=== PATIENT | female | born 1950 | race African-American/Black ===

== ENCOUNTER 2017-11-11 08:26 | Day surgery (SDC) | payer OTHER ==
[2017-11-10 12:55] VITALS: BMI 26.6
[2017-11-11] MEDS ORDERED: MIDAZOLAM HCL 2 MG/2 ML SINGLE DOSE VIAL ONE (10:03)
[2017-11-11] MEDS ORDERED: PROPOFOL 20 ML ONE ×2 (10:03)
[2017-11-11] MEDS ORDERED: ceFAZolin SODIUM 1 GM VIAL IVPB ONE (10:22)
[2017-11-11] MEDS ORDERED: LIDOCAINE HCL 1%, 10 MG/ML (20ML VIAL) NR ONE (10:29)
[2017-11-11] MEDS ORDERED: ONDANSETRON 4 MG/2 ML VIAL IVPUSH PRN (10:49)
--- NOTE | 2017-11-11 10:56 | HP ---
Admitting History and Physical - Admission Chief Complaint: bl necrotic venous stasis ulcers Limitations to Obtaining History: No Limitations - Past Medical History Cardiovascular: Yes: HTN, Other (peripheral Vascular insufficiency) - Past Surgical History Past Surgical History: Yes: Vein Stripping/Ligation - Smoking History Smoking history: Current every day smoker Have you smoked in the past 12 months: Yes Aproximately how many cigarettes per day: 5 - Alcohol/Substance Use Hx Alcohol Use: No History of Substance Use: reports: None - Social History ADL: Independent Home Medications - Allergies Allergies/Adverse Reactions: Allergies Allergy/AdvReac Type Severity Reaction Status Date / Time No Known Allergies Allergy Verified 11/11/17 09:18 - Home Medications Home Medications: Ambulatory Orders Multivitamin [Multivitamins] 1 each PO DAILY 08/01/13 Calcium Carbonate/Vitamin D3 [Calcium 500 + Vit D 400 Tablet] 1 each PO DAILY Potassium Bicarbonate/Cit AC [Potassium 25 Meq Tablet Eff] 20 meq PO DAILY 04/17 Amlodipine Besylate [Norvasc -] 2.5 mg PO DAILY 10/13/14 Aspirin [ASA -] 81 mg PO DAILY 10/13/14 Zolpidem Tartrate [Ambien] 10 mg PO HS 10/11/16 Aclidinium [place] [Tudorza -] 1 puff IH BID #10 inhaler 10/14/16 Albuterol 2.5/Ipratropium 0.5 [Duoneb -] 1 amp NEB Q4H PRN #10 amp 10/14/16 Albuterol Sulfate Inhaler - [Ventolin HFA Inhaler -] 2 puff IH Q4H PRN #10 inhaler 10/14/16 Family Disease History - Family Disease History Family Disease History: Diabetes: Sister ([place] at age 50s), Heart Disease: Mother (HTN), Sister Review of Systems - Review of Systems Constitutional: reports: No Symptoms Eyes: reports: No Symptoms HENT: reports: No Symptoms Neck: reports: No Symptoms Cardiovascular: reports: No Symptoms Respiratory: reports: No Symptoms Gastrointestinal: reports: No Symptoms Genitourinary: reports: No Symptoms Musculoskeletal: reports: No Symptoms Integumentary: reports: No Symptoms Neurological: reports: No Symptoms Endocrine: reports: No Symptoms Hematology/Lymphatic: reports: No Symptoms Psychiatric: reports: No Symptoms Physical Examination Vital Signs: Vital Signs Temperature 97.6 F 11/11/17 09:12 Pulse Rate 100 H 11/11/17 09:12 Respiratory Rate 20 11/11/17 09:12 Blood Pressure 132/83 11/11/17 09:12 O2 Sat by Pulse Oximetry (%) 94 L 11/11/17 09:11 Constitutional: Yes: Well Nourished Eyes: Yes: WNL HENT: Yes: WNL Neck: Yes: WNL Cardiovascular: Yes: WNL Respiratory: Yes: WNL Gastrointestinal: Yes: WNL ...Rectal Exam: Yes: WNL Musculoskeletal: Yes: WNL Extremities: Yes: Other (bl venous stasis ulcers) Edema: LUE: 2+, RUE: 2+ Assessment/Plan bl venous stasis ulcers 1. For debridement today
--- NOTE | 2017-11-11 10:58 | OP ---
Operative Note - Note: Operative Date: 11/11/17 Pre-Operative Diagnosis: bl venous stasis ulcers , necrotic Operation: excisional debridement bl venous stasis ulcers -- skin, subcutaneous tissue Findings: necrotic tissue sent to path Post-Operative Diagnosis: Same as Pre-op Surgeon: Aj Dexter Anesthesia: Fractional Estimated Blood Loss (mls): 30 Operative Report Dictated: Yes
[2017-11-11] MEDS ORDERED: LACTATED RINGERS SOLUTION 1,000 ML IV SCH (11:00)
[2017-11-11 12:18] VITALS: TEMP 98
[2017-11-11 13:00] VITALS: BP 136/81; PULSE 79
--- NOTE | 2017-11-12 10:56 | OP ---
DATE OF OPERATION: 11/11/2017 PREOPERATIVE DIAGNOSIS: Necrotic bilateral lower extremity venous stasis ulcers. POSTOPERATIVE DIAGNOSIS: Necrotic bilateral lower extremity venous stasis ulcers. PROCEDURE PERFORMED: Excisional debridement of bilateral lower extremity venous stasis ulcers, skin and subcutaneous tissue. SURGEON: Aj Garcia DO ANESTHESIA: Fractional. BLOOD LOSS: 30 mL. INDICATIONS: The patient is a 67-year-old female who has had long-standing venous stasis ulcers in bilateral lower extremities. Recently they have become necrotic and it has been very difficult to debride them in the [facility] Care [facility], and we decided that she would need to go to the operating room. The patient came in to Ambulatory Surgery. DESCRIPTION OF PROCEDURE: The patient was consented for the procedure, understanding all risks, benefits and alternatives, and was then taken to the operating room. Once in the operating room, the patient was laid on the operating table in the supine manner. Bilateral lower extremities, legs, ankles and feet were prepped and draped in a sterile surgical manner. We then went ahead and took a curette, and we were able to debride the right medial malleolus, the left medial malleolus and the left lateral malleolus. Necrotic tissue was removed and sent off to Pathology. We were able to get down to a clean surface base for all 3 wounds. Bovie electrocautery was used to control all hemostasis. We then went ahead and placed Xeroform, 4 x 4's, Kerlix and Gabe bandages to both legs. The patient tolerated the procedure with no complication. Total blood loss was 30 mL. The patient was transferred to PACU in stable condition. AJ GARCIA DO CLINICAL EVALUATOR/[id number]
--- NOTE | 2017-11-12 16:51 | PATH ---
Surgical Pathology Report Patient Name: KIRAN KHAN [facility]. Rec. #: [id number] /Age/Gender: 1950 (Age: 67) / F Account: [id number] Location: [facility] SURGICAL Taken: 11/11/2017 Received: 11/11/2017 Reported: 11/12/2017 Physicians: Aj Dexter Specimen(s) Received RIGHT AND LEFT VENOUS STATIS ULCERS Clinical History Bilateral venous stasis ulcers Final Diagnosis SKIN, [place], RIGHT AND LEFT, ULCER DEBRIDEMENT: FRAGMENTS OF SKIN AND SUBCUTANEOUS TISSUE WITH MARKED ACUTE AND CHRONIC INFLAMMATION, NECROSIS, AND ULCERATION. Electronically Signed Adeola Burns M.D. Gross Description Received in formalin labeled "right and left venous stasis ulcers," is a 2.5 x 2.0 x 0.3 cm aggregate of harris-brown soft tissue fragments. Director Emergency Department portions are submitted in one cassette. 11/11/201711/11/2017
== END 2017-11-11 12:15 | disposition home or self-care (01) ==
LOC: JASU-SURG 08:26
PROVIDERS: ATTEND Surgery Vascular Surgery
PROC: 0JBN0ZZ Excision of Right Lower Leg Subcutaneous Tissue and Fascia, Open Approach (ICD-10-PCS; principal; 2017-11-11 09:00)
DX: L97.329 Non-pressure chronic ulcer of left ankle with unspecified severity (principal); L97.319 Non-pressure chronic ulcer of right ankle with unspecified severity; I87.8 Other specified disorders of veins
CPT/HCPCS: 88304-TC; 94760

== ENCOUNTER 2018-09-18 11:18 | Observation (INO) | payer OTHER ==
--- NOTE | 2018-09-18 12:16 | PDOC ---
History of Present Illness - General Chief Complaint: Wound Stated Complaint: SENT BY PCP/ADMISSION Time Seen by Provider: 09/18/18 11:54 History Source: Patient Exam Limitations: No Limitations - History of Present Illness Initial Comments: 09/18/18 15:53 66F with PMH of PVD HTN chronic venous stasis ulcers and recurrent cellulitis presents with pain and new ulcers on the R medial and lateral aspects of the ankle with new serosangounes drainage. The patient denies any fevers, difficulty ambulating, headaches, fevers, nausea, vomiting. Past History - Past Medical History Allergies/Adverse Reactions: Allergies Allergy/AdvReac Type Severity Reaction Status Date / Time No Known Allergies Allergy Verified 09/18/18 11:26 Home Medications: Ambulatory Orders Multivitamin [Multivitamins] 1 each PO DAILY 08/01/13 Calcium Carbonate/Vitamin D3 [Calcium 500 + Vit D 400 Tablet] 1 each PO DAILY Potassium Bicarbonate/Cit AC [Potassium 25 Meq Tablet Eff] 20 meq PO DAILY 04/17 Amlodipine Besylate [Norvasc -] 2.5 mg PO DAILY 10/13/14 Aspirin [ASA -] 81 mg PO DAILY 10/13/14 Aclidinium [place] [Tudorza -] 1 puff IH BID #10 inhaler 10/14/16 Albuterol 2.5/Ipratropium 0.5 [Duoneb -] 1 amp NEB Q4H PRN #10 amp 10/14/16 Albuterol Sulfate Inhaler - [Ventolin HFA Inhaler -] 2 puff IH Q4H PRN #10 inhaler 10/14/16 Anemia: No Asthma: No Cancer: No Cardiac Disorders: No CVA: No COPD: Yes CHF: No Dementia: No Diabetes: No GI Disorders: No Disorders: No HTN: Yes Hypercholesterolemia: No Liver Disease: No Seizures: No Thyroid Disease: No Other medical history: PVD - Surgical History Abdominal Surgery: No Appendectomy: No Cardiac Surgery: No Cholecystectomy: No Lung Surgery: No Neurologic Surgery: No Orthopedic Surgery: No - Suicide/Smoking/Psychosocial Hx Smoking History: Current every day smoker Have you smoked in the past 12 months: Yes Number of Cigarettes Smoked Daily: 5 Information on smoking cessation initiated: Yes 'Breaking Loose' booklet given: 09/18/18 Hx Alcohol Use: No Drug/Substance Use Hx: No Substance Use Type: None Hx Substance Use Treatment: No *Physical Exam - Vital Signs Last Vital Signs Temp Pulse Resp BP Pulse Ox 98.2 F 95 H 18 137/77 100 09/18/18 11:27 09/18/18 11:27 09/18/18 11:27 09/18/18 11:27 09/18/18 11:27 - Physical Exam Comments: 09/18/18 12:14 2 - .5 cm medial stage 1 ulcers 1 - .25cm lateral stage 1 ulcer. pain to the touch and of medial dorsal aspect of L foot (new) yellow discharge no fevers wound clinic ever thursday due to PVD 09/18/18 15:15 ED Treatment Course - LABORATORY CBC & Chemistry Diagram: 09/18/18 13:53 09/18/18 13:53 Medical Decision Making - Medical Decision Making 09/18/18 15:14 DDX including but not limited to: osteomylitis vs ulcers vs cellulitis W/U: - TX: - Scores: ED Course: Patient in no acute distress, ambulating around the ED without difficulty. 09/18/18 15:43 Dotty contacted: advised to give abx as pt is immunocompromised. Recommends admission for further workup to r/o osteomyoletis 09/18/18 16:52 Patient admitted to medicine. *DC/Admit/Observation/Transfer Diagnosis at time of Disposition: Ulcer of left foot - Discharge Dispostion Disposition: HOME Condition at time of disposition: Stable Decision to Admit order: Yes - Referrals Referrals: Hemalatha Storm MD [Primary Care Provider] - - Patient Instructions - Post Discharge Activity
--- NOTE | 2018-09-18 12:49 | PDOC ---
Attending Attestation - HPI HPI: 09/18/18 15:44 "The patient is a 68-year-old female with past medical history significant for HTN, PVD, and chronic R/L ankle ulcer was referred to the emergency department by Dr. Storm for new onset of ulcers to the medial and lateral aspect of the ankle and possible osteomyelitis. The patient reports she gets the wound dressing changed every Thursday. The patient states during the dressing change yesterday (09/17/2018), the doctor noticed new wounds to the ankles with yellow serosanguineous drainage. Denies seeing the wound last Thursday, pain to the site , fever, chills, chest pain, shortness of breath, abdominal pain, numbness, tingling, loss of sensation, weakness or falls. Per pt, she was told to come to the hospital for psosible admission for iv abx and mri for osteomyelitis. Allergies: NKA Social history: Current everyday smoker. Denies prior or present use of alcohol or recreational drug use. Surgical history: None reported ID: Hemalatha Storm MD Vascular Surgeon: Dr. Dexter. " - Medical Decision Making 09/18/18 15:45 Documentation prepared by Leilani Zamora, acting as medical surgical tech for Jacobo Conde MD. <Leilani Zamora - Last Filed: 09/18/18 15:44> - Resident Resident Name: Radha Colon - ED Attending Attestation I have performed the following: I have examined & evaluated the patient, The case was reviewed & discussed with the resident, I agree w/resident's findings & plan, Exceptions are as noted - Physicial Exam PE: 09/18/18 12:59 General: No acute distress Skin: 2x .5cm medial ulcers, 1 x .25cm lateral ulcers on ankle - Medical Decision Making 09/18/18 12:20 68y F hx of pvd, chronic r and l ankle ulcers, fus with wound care, noticed some yellowish serosangounous discharge and new ulcers at wound care, referred for MRI by ID for evaluation of possible osteomyelitis. p t denies any fever, cp , abd pain, n/v, diaphorsis, generalized weakness. endorses mild pain in her ankle will obtain crp/esr, xray, basic labs will discuss with ID (Dr. Storm) 09/18/18 18:20 Pt had a IV guided line that infiltrated. I attempted to place US guided lines without success, several blown llines. Pt declines further attemps for now - she is pending an MRI for osteo - if no osteo, pt may not need a line. Will attempt place IO or central line for access if she needs IV abx <Jacobo Conde - Last Filed: 09/19/18 09:46>
[2018-09-18] MEDS ORDERED: SODIUM CHLORIDE 1,000 ML IV SCH (13:00)
[2018-09-18 14:10] LABS: BASO % 0.9 % (0-2.0); EOS % 1.7 % (0-4.5); HEMATOCRIT 39.4 % (32.4-45.2); HEMOGLOBIN 12.8 GM/dL (10.7-15.3); LYMPH % 35.6 % (8-40); MCH 28.5 pg (25.7-33.7); MCHC 32.6 g/dl (32.0-36.0); MEAN CELL VOLUME 87.4 fl (80-96); MEAN PLT VOLUME 7.6 fl (7.5-11.1); MONO % 6.6 % (3.8-10.2); NEUT % 55.2 % (42.8-82.8); PLATELET COUNT 153 K/MM3 (134-434); RBC 4.51 M/mm3 (3.60-5.2); RDW 14.5 % (11.6-15.6); WHITE BLOOD COUNT 5.9 K/mm3 (4.0-10.0)
[2018-09-18 14:35] LABS: ALBUMIN 3.5 g/dl (3.4-5.0); ALK PHOS 111 U/L (45-117); ANION GAP 4 MMOL/L (8-16); BILIRUBIN,TOTAL 0.4 mg/dL (0.2-1); BLOOD UREA NITROGEN 13 mg/dL (7-18); CALCIUM 8.5 mg/dL (8.5-10.1); CHLORIDE 102 mmol/L (98-107); CO2 34 mmol/L (21-32); CREATININE 0.6 mg/dL (0.55-1.3); GLUCOSE,RANDOM 131 mg/dL (74-106); POTASSIUM 4.4 mmol/L (3.5-5.1); SGOT/AST 26 U/L (15-37); SGPT/ALT 20 U/L (13-61); SODIUM 139 mmol/L (136-145); TOT PROT 8.7 g/dl (6.4-8.2)
[2018-09-18 15:33] LABS: ERYTHROCYTE SEDIMENTATION RATE 32 mm/hr (0-30)
[2018-09-18] MEDS ORDERED: VANCOMYCIN 1,000 MG in DEXTROSE 5%-WATER - 250 ML IVPB ONE (15:42)
[2018-09-18] MEDS ORDERED: PIPERACILLIN/TAZOB 4.5 GM 4.5 GM/100 ML BAG IVPB ONE (16:45)
[2018-09-18] MEDS ORDERED: VANCOMYCIN 1 GRAM (PRE-DOCKED) 1,000 MG/250 ML BAG IVPB ONE (16:45)
[2018-09-18] MEDS: PIPERACILLIN/TAZOB 4.5 GM 4.5 GM in DEXTROSE 5%-WATER 100 ML IVPB ONE ×2 (16:47→22:37)
--- NOTE | 2018-09-18 16:48 | PN ---
Teaching Attending Note Name of Resident: Honorio Gomez ATTENDING PHYSICIAN STATEMENT I saw and evaluated the patient. I reviewed the resident's note and discussed the case with the resident. I agree with the resident's findings and plan as documented. SUBJECTIVE: CC: patient was sent from the ID clinic for further evaluation of new foot ulcers with concern for OM. She states that she has been in her US[facility] till last week when she noticed worsening pain in her L ankle. She denies any other complaints,no F/C. she avina had chronic venous insufficiency ulcers B/L Ankles, lat time I&D inaptient with concern for OM 2 years ago. States that she has the B/L unaboots changed weekly by her vascular surgeon doctor Isacc, and today during the exam they noticed new ulcers around the healing medical maleus ulcer of the L ankle with erythema around it and some pus discharge. She was sent to the hospital for MRI. OBJECTIVE: Last Vital Signs Temp Pulse Resp BP Pulse Ox 98.2 F 95 H 18 137/77 100 09/18/18 11:27 09/18/18 11:27 09/18/18 11:27 09/18/18 11:27 09/18/18 11:27 She refused to let us open the unaboot. In no distress MMM B/L radial pulses equal, could not detect poplietal arteries again. CVS:S1S2, + Murmur Lung; good air movement, has minimal rals B basilar ABd: BS+ NT/ND MELY: has the unaboots on. chronic skin changes around the toes CBCD WBC 5.9 K/mm3 (4.0-10.0) 09/18/18 13:53 RBC 4.51 M/mm3 (3.60-5.2) 09/18/18 13:53 Hgb 12.8 GM/dL (10.7-15.3) 09/18/18 13:53 Hct 39.4 % (32.4-45.2) 09/18/18 13:53 MCV 87.4 fl (80-96) 09/18/18 13:53 MCHC 32.6 g/dl (32.0-36.0) 09/18/18 13:53 RDW 14.5 % (11.6-15.6) 09/18/18 13:53 Plt Count 153 K/MM3 (134-434) 09/18/18 13:53 MPV 7.6 fl (7.5-11.1) 09/18/18 13:53 CMP Sodium 139 mmol/L (136-145) 09/18/18 13:53 Potassium 4.4 mmol/L (3.5-5.1) 09/18/18 13:53 Chloride 102 mmol/L (98-107) 09/18/18 13:53 Carbon Dioxide 34 mmol/L (21-32) H 09/18/18 13:53 Anion Gap 4 MMOL/L (8-16) L 09/18/18 13:53 BUN 13 mg/dL (7-18) 09/18/18 13:53 Creatinine 0.6 mg/dL (0.55-1.3) 09/18/18 13:53 Creat Clearance w eGFR > 60 (>60) 09/18/18 13:53 Random Glucose 131 mg/dL (74-106) H 09/18/18 13:53 Calcium 8.5 mg/dL (8.5-10.1) 09/18/18 13:53 Total Bilirubin 0.4 mg/dL (0.2-1) 09/18/18 13:53 AST 26 U/L (15-37) 09/18/18 13:53 ALT 20 U/L (13-61) 09/18/18 13:53 Alkaline Phosphatase 111 U/L (45-117) 09/18/18 13:53 Total Protein 8.7 g/dl (6.4-8.2) H 09/18/18 13:53 Albumin 3.5 g/dl (3.4-5.0) 09/18/18 13:53 Laboratory Tests 09/18/18 09/18/18 13:53 13:53 ESR 32 H C-Reactive Protein 0.8 H Foot Xray with no clear OSTEO Home Medications Medication Instructions Recorded Multivitamin [Multivitamins] 1 each PO DAILY 08/01/13 Calcium Carbonate/Vitamin D3 1 each PO DAILY 04/17/14 [Calcium 500 + Vit D 400 Tablet] Potassium Bicarbonate/Cit AC 20 meq PO DAILY 04/17/14 [Potassium 25 Meq Tablet Eff] Amlodipine Besylate [Norvasc -] 2.5 mg PO DAILY 10/13/14 Aspirin [ASA -] 81 mg PO DAILY 10/13/14 Aclidinium [place] [Tudorza -] 1 puff IH BID #10 inhaler 10/14/16 Albuterol 2.5/Ipratropium 0.5 1 amp NEB Q4H PRN #10 amp 10/14/16 [Duoneb -] Albuterol Sulfate Inhaler - 2 puff IH Q4H PRN #10 inhaler 10/14/16 [Ventolin HFA Inhaler -] ASSESSMENT AND PLAN: She is 68 Y/O F active smoker, with chronic venous insufficiency following up with Dr. Dexter. sent from clinic for new ulcers and concern for OM. ESR and CRP are not significantly elevated, No leukocytosis, but she states that the pain has worsened, will get MRI for OM. will start her on vanc/zosyn per ID recs. further planing pending MRI REPORTS Poor pulses in the MELY will get vascular studies for arterial supply. She is on aspirin and CCB Active smoker: does not want to talk about smoking cessation at this time, denies need for nicotine patch rest of the management per HS note
[2018-09-18] MEDS ORDERED: VANCOMYCIN 1,000 MG in DEXTROSE 5%-WATER - 250 ML IVPB SCH ×2 (17:00→18:00)
--- NOTE | 2018-09-18 17:32 | HP ---
CHIEF COMPLAINT: L leg ulcers HISTORY OF PRESENT ILLNESS: 68 year old female with a history peripheral arterial/venous disease, hypertension and recurrent cellulitis requiring usp antibiotics in the past sent by Dr. Storm for evaluation of left lower extremity ankle wound and IV antibiotics. Patient sees Dr. Dexter as an outpatient once a week. Reports that for about 1 week, she has had a quarter sized ulcer on the medial and lateral side of her ankle become worse - reports that smaller ulcers are appearing around the edge of the chronic ulcers and have begun to ooze purulent fluid. She reports mild pain around the area of the ulcer. Denies fevers, chills , nausea, vomiting, diarrhea, chest pain or shortness of breath. No sick contacts. No recent travel. ER course was notable for: (1) ESR/CRP mildly elevated (2) X ray of the foot cannot r/o osteomyelitis and recommends MRI (3) PAST MEDICAL HISTORY: PAD HTN PAST SURGICAL HISTORY: laser vein surgery Social History: Smokin.5 ppd since she was a teenager, cut down to 0.5ppd Alcohol: denies Drugs: denies Allergies No Known Allergies Allergy (Verified 09/18/18 11:26) HOME MEDICATIONS: Home Medications Medication Instructions Recorded Multivitamin [Multivitamins] 1 each PO DAILY 08/01/13 Calcium Carbonate/Vitamin D3 1 each PO DAILY 04/17/14 [Calcium 500 + Vit D 400 Tablet] Potassium Bicarbonate/Cit AC 20 meq PO DAILY 04/17/14 [Potassium 25 Meq Tablet Eff] Amlodipine Besylate [Norvasc -] 2.5 mg PO DAILY 10/13/14 Aspirin [ASA -] 81 mg PO DAILY 10/13/14 Aclidinium [place] [Tudorza -] 1 puff IH BID #10 inhaler 10/14/16 Albuterol 2.5/Ipratropium 0.5 1 amp NEB Q4H PRN #10 amp 10/14/16 [Duoneb -] Albuterol Sulfate Inhaler - 2 puff IH Q4H PRN #10 inhaler 10/14/16 [Ventolin HFA Inhaler -] REVIEW OF SYSTEMS CONSTITUTIONAL: Absent: fever, chills, diaphoresis, generalized weakness, malaise, loss of appetite, weight change HEENT: Absent: rhinorrhea, nasal congestion, throat pain, throat swelling, difficulty swallowing, mouth swelling, ear pain, eye pain, visual changes CARDIOVASCULAR: Absent: chest pain, syncope, palpitations, irregular heart rate, lightheadedness , peripheral edema RESPIRATORY: Absent: cough, shortness of breath, dyspnea with exertion, orthopnea, wheezing, stridor, hemoptysis GASTROINTESTINAL: Absent: abdominal pain, abdominal distension, nausea, vomiting, diarrhea, constipation, melena, hematochezia GENITOURINARY: Absent: dysuria, frequency, urgency, hesitancy, hematuria, flank pain, genital pain MUSCULOSKELETAL: Absent: myalgia, arthralgia, joint swelling, back pain, neck pain SKIN: Absent: rash, itching, pallor HEMATOLOGIC/IMMUNOLOGIC: Absent: easy bleeding, easy bruising, lymphadenopathy, frequent infections ENDOCRINE: Absent: unexplained weight gain, unexplained weight loss, heat intolerance, cold intolerance NEUROLOGIC: Absent: headache, focal weakness or paresthesias, dizziness, unsteady gait, seizure, mental status changes, bladder or bowel incontinence PSYCHIATRIC: Absent: anxiety, depression, suicidal or homicidal ideation, hallucinations. PHYSICAL EXAMINATION Vital Signs - 24 hr 09/18/18 11:27 Temperature 98.2 F Pulse Rate 95 H Respiratory 18 Rate Blood Pressure 137/77 O2 Sat by Pulse 100 Oximetry (%) GENERAL: Awake, alert, and fully oriented, in no acute distress. EYES: Pupils equal, round and reactive to light LUNGS: CTA, no wheezes HEART: RRR, mild systolic murmur noted on exam ABDOMEN: Soft, nontender, BS present UPPER EXTREMITIES: no peripheral edema noted, patient adamantly refused to allow me to examine her wounds, stating that too many doctors have already looked at it and re-wrapped her legs. Laboratory Results - last 24 hr 09/18/18 09/18/18 13:53 13:53 WBC 5.9 RBC 4.51 Hgb 12.8 Hct 39.4 MCV 87.4 MCH 28.5 MCHC 32.6 RDW 14.5 Plt Count 153 MPV 7.6 Absolute Neuts (auto) 3.3 Neutrophils % 55.2 Lymphocytes % 35.6 Monocytes % 6.6 Eosinophils % 1.7 Basophils % 0.9 Nucleated RBC % 0 ESR 32 H Sodium 139 Potassium 4.4 Chloride 102 Carbon Dioxide 34 H Anion Gap 4 L BUN 13 Creatinine 0.6 Creat Clearance w eGFR > 60 Random Glucose 131 H Calcium 8.5 Total Bilirubin 0.4 AST 26 ALT 20 Alkaline Phosphatase 111 C-Reactive Protein 0.8 H Total Protein 8.7 H Albumin 3.5 ASSESSMENT/PLAN: 68 year old female with a history peripheral arterial/venous disease and recurrent cellulitis requiring usp antibiotics in the past sent by Dr. Storm for evaluation of left lower extremity ankle wound and IV antibiotics #LLE Ankle Wounds: patient did not let me examine the wound, itself, but will assess for osteomyelitis -continue vancomycin/zosyn -ESR/CRP mildly elevated -ID consult Dr. Storm -MRI LLE without contrast to evaluate for osteo -f/u cultures -no foot Xray evidence of osteomyelitis #Hypertension -continue amlodipine #FEN -no standing fluids -replete lytes as necessary in AM -low-sodium diet #Prophylaxis -lovenox #Disposition -admit obs Visit type - Emergency Visit Emergency Visit: Yes ED Registration Date: 09/18/18 Care time: The patient presented to the Emergency Department on the above date and was hospitalized for further evaluation of their emergent condition. - New Patient This patient is new to me today: Yes Date on this admission: 09/18/18 - Critical Care Critical Care patient: No
[2018-09-18] MEDS ORDERED: ALBUTEROL SO4 8 GM HFA INHALER IH PRN (17:33)
[2018-09-18] MEDS ORDERED: ALBUTEROL SO4 2.5/IPRATROPIUM 0.5 INH SOL 3 ML VIAL.NEB. NEB PRN (17:33)
[2018-09-18] MEDS ORDERED: PIPERACILLIN/TAZOB 4.5 GM 4.5 GM in DEXTROSE 5%-WATER 100 ML IVPB SCH (22:00)
[2018-09-18] MEDS: VANCOMYCIN 1 GRAM (PRE-DOCKED) 1,000 MG/250 ML BAG IVPB SCH (22:38)
[2018-09-18] MEDS: PIPERACILLIN/TAZOB 4.5 GM 4.5 GM in DEXTROSE 5%-WATER 100 ML IVPB SCH (23:27)
[2018-09-18] MEDS: ENOXAPARIN NA (PORCINE) 40 MG/0.4 ML DISP.SYRIN SQ SCH (23:36)
[2018-09-19 00:02] VITALS: BMI 26.8
[2018-09-19] MEDS ORDERED: oxyCODONE HCL 5 MG TABLET PO ONE (00:36)
[2018-09-19] MEDS: VANCOMYCIN 1 GRAM (PRE-DOCKED) 1,000 MG/250 ML BAG IVPB SCH ×3 (06:19→18:20)
[2018-09-19] MEDS ORDERED: CYCLOBENZAPRINE HCL 10 MG TABLET (FP) PO ONE (06:50)
[2018-09-19] MEDS ORDERED: PIPERACILLIN/TAZOBACTAM 4.5 GM VIAL IVPB ONE ×2 (08:50→21:18)
[2018-09-19] MEDS ORDERED: DEXTROSE 5%-WATER 100 ML IVPB ONE ×2 (08:50→21:18)
[2018-09-19 09:41] LABS: HEMATOCRIT 41.3 % (32.4-45.2); HEMOGLOBIN 13.8 GM/dL (10.7-15.3); MCH 29.1 pg (25.7-33.7); MCHC 33.4 g/dl (32.0-36.0); MEAN PLT VOLUME 8.3 fl (7.5-11.1); PLATELET COUNT 169 K/MM3 (134-434); RBC 4.75 M/mm3 (3.60-5.2); RDW 14.5 % (11.6-15.6); WHITE BLOOD COUNT 5.1 K/mm3 (4.0-10.0)
[2018-09-19] MEDS: amLODIPine BESYLATE 2.5 MG TABLET (FP) PO SCH (09:47)
[2018-09-19] MEDS: ASPIRIN 81 MG CHEWABLE TABLETS PO SCH (09:47)
[2018-09-19] MEDS: CALCIUM 500MG/VIT-D 200 UNITS COMBO TABLET (FP) PO SCH (09:47)
[2018-09-19] MEDS: MULTIVITAMINS (DAILY MVI) TABLET (FP) PO SCH (09:48)
[2018-09-19] MEDS: POTASSIUM CHLORIDE ORAL LIQUID 20 MEQ/15 ML PO SCH ×2 (09:48→10:03)
[2018-09-19] MEDS: ENOXAPARIN NA (PORCINE) 40 MG/0.4 ML DISP.SYRIN SQ SCH (09:48)
[2018-09-19] MEDS: PIPERACILLIN/TAZOB 4.5 GM 4.5 GM in DEXTROSE 5%-WATER 100 ML IVPB SCH ×2 (09:49→21:22)
[2018-09-19] MEDS ORDERED: PT OWN MED DRAWER 7, Y5N ONE (09:55)
[2018-09-19] MEDS: TIOTROPIUM BROMIDE 2.5 MCG (SPIRIVA) RESPIMAT INHALER IH SCH (09:56)
--- NOTE | 2018-09-19 10:17 | PN ---
Progress Note (short form) - Note Progress Note: asymptomatic. wants to be left alone. denies Cp, SOB, fever,c hills, N/V/C/D Current Medications Generic Name Dose Route Start Last Admin Trade Name Nathaly PRN Reason Stop Dose Admin Albuterol Sulfate 2 puff 09/18/18 17:33 Ventolin Hfa Inhaler - IH Q4H PRN SHORT OF BREATH/WHEEZING Albuterol/Ipratropium 1 amp 09/18/18 17:33 Duoneb - NEB Q4H PRN SHORTNESS OF BREATH Amlodipine Besylate 2.5 mg 09/19/18 10:00 09/19/18 09:47 Norvasc - PO 2.5 mg DAILY LISA Administration Aspirin 81 mg 09/19/18 10:00 09/19/18 09:47 Asa - PO 81 mg DAILY LISA Administration Calcium Carbonate/Cholecalciferol 1 tab 09/19/18 10:00 09/19/18 09:47 Os-Lauro 500+D - PO 1 tab DAILY LISA Administration Enoxaparin Sodium 40 mg 09/18/18 19:30 09/19/18 09:48 Lovenox - SQ 40 mg DAILY LISA Administration Piperacillin Sod/Tazobactam 100 mls @ 200 mls/hr 09/18/18 22:00 09/19/18 09: 49 Sod 4.5 gm/ Dextrose IVPB 200 mls/hr BID LISA Administration Protocol Vancomycin HCl 1,000 mg in 250 mls @ 166.667 mls/hr 09/18/18 19:00 09/19/18 06:19 Vancomycin (Pre-Docked) IVPB 166.667 mls/hr BID@0700,1900 LISA Administration Protocol Multivitamins/Minerals/Vitamin C 1 tab 09/19/18 10:00 09/19/18 09:48 Tab-A-Vit - PO 1 tab DAILY LISA Administration Oxycodone/Acetaminophen 1 combo 09/19/18 10:13 Percocet 5/325 - PO Q4H PRN PAIN LEVEL 6-10 Tiotropium [place] 2 puff 09/19/18 10:00 09/19/18 09:56 Spiriva Respimat IH 2 puff DAILY LISA Administration Last Vital Signs Temp Pulse Resp BP Pulse Ox 98.2 F 102 H 20 81/48 L 95 09/19/18 04:00 09/19/18 04:00 09/19/18 04:00 09/19/18 04:00 09/18/18 23:45 General NAD CV S1 S2 RRR no murmur/rub/gallop Lungs CTA B/L no wheezing/rales/rhonchi Extremiteis refused examination of her legs. CBCD WBC 5.1 K/mm3 (4.0-10.0) 09/19/18 09:07 RBC 4.75 M/mm3 (3.60-5.2) 09/19/18 09:07 Hgb 13.8 GM/dL (10.7-15.3) 09/19/18 09:07 Hct 41.3 % (32.4-45.2) 09/19/18 09:07 MCV 87.0 fl (80-96) 09/19/18 09:07 MCHC 33.4 g/dl (32.0-36.0) 09/19/18 09:07 RDW 14.5 % (11.6-15.6) 09/19/18 09:07 Plt Count 169 K/MM3 (134-434) 09/19/18 09:07 MPV 8.3 fl (7.5-11.1) 09/19/18 09:07 CMP Sodium 139 mmol/L (136-145) 09/18/18 13:53 Potassium 4.4 mmol/L (3.5-5.1) 09/18/18 13:53 Chloride 102 mmol/L (98-107) 09/18/18 13:53 Carbon Dioxide 34 mmol/L (21-32) H 09/18/18 13:53 Anion Gap 4 MMOL/L (8-16) L 09/18/18 13:53 BUN 13 mg/dL (7-18) 09/18/18 13:53 Creatinine 0.6 mg/dL (0.55-1.3) 09/18/18 13:53 Creat Clearance w eGFR > 60 (>60) 09/18/18 13:53 Calcium 8.5 mg/dL (8.5-10.1) 09/18/18 13:53 Total Bilirubin 0.4 mg/dL (0.2-1) 09/18/18 13:53 AST 26 U/L (15-37) 09/18/18 13:53 ALT 20 U/L (13-61) 09/18/18 13:53 Alkaline Phosphatase 111 U/L (45-117) 09/18/18 13:53 Total Protein 8.7 g/dl (6.4-8.2) H 09/18/18 13:53 Albumin 3.5 g/dl (3.4-5.0) 09/18/18 13:53 A/P 68yo F with PMH PVD, HTN was sent to the ER from the clinic on thursday for non-healing ulcer on LLE 1. Non-healing LLE ulcer- pt refused examination and can not be assessed. r/o OM. ESR/CRP only marginally elevated. XR negative. MRI done but negative at thsi time. On empiric Vanco/zosyn day 2. Will await for MRI reading and further management per ID. cont pain control. daily wound care 2. HTN- last reading in the computer was liekly error or positional. no symptoms reported at that time Currently BP 129/68. cont home medications 3. DVT ppx- lovenox Visit type - Emergency Visit Emergency Visit: Yes ED Registration Date: 09/18/18 Care time: The patient presented to the Emergency Department on the above date and was hospitalized for further evaluation of their emergent condition. - New Patient This patient is new to me today: Yes Date on this admission: 09/19/18 - Critical Care Critical Care patient: No - Discharge Referral Referred to [facility] Med P.C.: No
[2018-09-19 10:18] LABS: ANION GAP 8 MMOL/L (8-16); BLOOD UREA NITROGEN 6 mg/dL (7-18); CALCIUM 8.1 mg/dL (8.5-10.1); CHLORIDE 101 mmol/L (98-107); CO2 32 mmol/L (21-32); CREATININE 0.5 mg/dL (0.55-1.3); GLUCOSE,RANDOM 96 mg/dL (74-106); MAGNESIUM 1.9 mg/dL (1.8-2.4); PHOSPHOROUS 2.5 mg/dL (2.5-4.9); POTASSIUM 3.7 mmol/L (3.5-5.1); SODIUM 141 mmol/L (136-145)
--- NOTE | 2018-09-19 11:58 | CON.ID ---
Consult - History of Present Illness History of Present Illness: 68 y.o. female with PMH of chronic ankle ulcers, PVD, and HTN admitted for further workup of developing Lt ankle ulcer with increased drainage from site. Pain has been following up regularly in wound care clinic and there was concern for developing OM. She states she has pain chronically and takes Oxycodone at home. She denies fever/chills or having any other specific complaints. - History Source History Provided By: Patient Limitations to Obtaining History: No Limitations - Past Medical History Cardio/Vascular: Yes: HTN, Other (peripheral Vascular insufficiency) ...: No - Past Surgical History Past Surgical History: Yes: Vein Stripping/Ligation - Alcohol/Substance Use Hx Alcohol Use: No History of Substance Use: reports: None - Smoking History Smoking history: Current every day smoker Have you smoked in the past 12 months: Yes Aproximately how many cigarettes per day: 6 - Social History ADL: Independent Home Medications - Allergies Allergies/Adverse Reactions: Allergies Allergy/AdvReac Type Severity Reaction Status Date / Time No Known Allergies Allergy Verified 09/18/18 11:26 - Home Medications Home Medications: Ambulatory Orders Multivitamin [Multivitamins] 1 each PO DAILY 08/01/13 Calcium Carbonate/Vitamin D3 [Calcium 500 + Vit D 400 Tablet] 1 each PO DAILY Potassium Bicarbonate/Cit AC [Potassium 25 Meq Tablet Eff] 25 meq PO DAILY 04/17 Amlodipine Besylate [Norvasc -] 2.5 mg PO DAILY 10/13/14 Aspirin [ASA -] 81 mg PO DAILY 10/13/14 Aclidinium [place] [Tudorza -] 1 puff IH BID #10 inhaler 10/14/16 Albuterol 2.5/Ipratropium 0.5 [Duoneb -] 1 amp NEB Q4H PRN #10 amp 10/14/16 Albuterol Sulfate Inhaler - [Ventolin HFA Inhaler -] 2 puff IH Q4H PRN #10 inhaler 10/14/16 Oxycodone HCl 10 mg PO DAILY 09/19/18 Zinc Amino Acid Chelate [Zinc] 50 mg PO DAILY 09/19/18 Family Disease History - Family Disease History Family Disease History: Diabetes: Sister ([place] at age 50s), Heart Disease: Mother (HTN), Sister Review of Systems - Review of Systems Constitutional: reports: No Symptoms Eyes: reports: No Symptoms HENT: reports: No Symptoms Neck: reports: No Symptoms Cardiovascular: reports: No Symptoms Respiratory: reports: No Symptoms Gastrointestinal: reports: No Symptoms Genitourinary: reports: No Symptoms Breasts: reports: No Symptoms Reported Musculoskeletal: reports: No Symptoms Integumentary: reports: Wound (Lt new medial ankle wound) Neurological: reports: No Symptoms Endocrine: reports: No Symptoms Hematology/Lymphatic: reports: No Symptoms Psychiatric: reports: No Symptoms Pain Intensity: 7 Physical Exam Vital Signs: Vital Signs Temperature 98.2 F 09/19/18 04:00 Pulse Rate 102 H 09/19/18 04:00 Respiratory Rate 20 09/19/18 04:00 Blood Pressure 81/48 L 09/19/18 04:00 O2 Sat by Pulse Oximetry (%) 95 09/18/18 23:45 Constitutional: Yes: No Distress, Calm Eyes: Yes: Conjunctiva Clear HENT: Yes: Atraumatic Neck: Yes: Supple Cardiovascular: Yes: Regular Rate and Rhythm Respiratory: Yes: CTA Bilaterally Gastrointestinal: Yes: Normal Bowel Sounds, Soft Renal/: Yes: WNL Musculoskeletal: Yes: WNL Extremities: Yes: WNL Edema: No Wound/Incision: Yes: Other (Lt medial ankle approx 2 cm ulcer with serous drainage, +tenderness with mild erythema dry Lt latera ankle wound 1 cm) Neurological: Yes: Alert Psychiatric: Yes: Alert Labs: CBC, BMP 09/19/18 09:07 09/19/18 09:07 Laboratory Tests 09/18/18 09/18/18 09/19/18 13:53 13:53 09:07 WBC 5.9 5.1 RBC 4.51 4.75 Hgb 12.8 13.8 Hct 39.4 41.3 MCV 87.4 87.0 MCH 28.5 29.1 MCHC 32.6 33.4 RDW 14.5 14.5 Plt Count 153 169 MPV 7.6 8.3 Absolute Neuts (auto) 3.3 Neutrophils % 55.2 Lymphocytes % 35.6 Monocytes % 6.6 Eosinophils % 1.7 Basophils % 0.9 Nucleated RBC % 0 ESR 32 H Sodium 139 Potassium 4.4 Chloride 102 Carbon Dioxide 34 H Anion Gap 4 L BUN 13 Creatinine 0.6 Creat Clearance w eGFR > 60 Random Glucose 131 H Calcium 8.5 Phosphorus Magnesium Total Bilirubin 0.4 AST 26 ALT 20 Alkaline Phosphatase 111 C-Reactive Protein 0.8 H Total Protein 8.7 H Albumin 3.5 09/19/18 09:07 WBC RBC Hgb Hct MCV MCH MCHC RDW Plt Count MPV Absolute Neuts (auto) Neutrophils % Lymphocytes % Monocytes % Eosinophils % Basophils % Nucleated RBC % ESR Sodium 141 Potassium 3.7 Chloride 101 Carbon Dioxide 32 Anion Gap 8 BUN 6 L Creatinine 0.5 L Creat Clearance w eGFR > 60 Random Glucose 96 Calcium 8.1 L Phosphorus 2.5 Magnesium 1.9 Total Bilirubin AST ALT Alkaline Phosphatase C-Reactive Protein Total Protein Albumin Imaging - Results X-ray: Report Reviewed (ankle xray) MRI: Pending Problem List - Problems (1) Ulcer of left foot Code(s): L97.529 - NON-PRESSURE CHRONIC ULCER OTH PRT LEFT FOOT W UNSP SEVERITY (2) Cellulitis Code(s): L03.90 - CELLULITIS, UNSPECIFIED (3) Chronic ulcer of left foot Code(s): L97.529 - NON-PRESSURE CHRONIC ULCER OTH PRT LEFT FOOT W UNSP SEVERITY (4) Venous insufficiency (chronic) (peripheral) Code(s): I87.2 - VENOUS INSUFFICIENCY (CHRONIC) (PERIPHERAL) (5) Wound infection Code(s): T14.8 - OTHER INJURY OF UNSPECIFIED BODY REGION * DO NOT USE *; L08.9 - LOCAL INFECTION OF THE SKIN AND SUBCUTANEOUS TISSUE, UNSP Assessment/Plan 68 y.o. female with PMH of PVD, chronic LE ulcers, HTN presenting with new Lt medial ankle ulcer with drainage/pain/mild erythema Ankle ulcer infection r/o OM -- esr mildly elevated, crp normal -- f/u MRI results -- cont. wound care -- vascular w/u -- cont. empiric antibiotics for now
[2018-09-19] MEDS: ACETAMINOPHEN 325 MG TABLET (FP) PO PRN (12:18)
[2018-09-19] MEDS: oxyCODONE HCL 5 MG TABLET PO PRN ×3 (12:18→21:33)
[2018-09-20] MEDS: oxyCODONE HCL 5 MG TABLET PO PRN ×2 (05:17→10:39)
[2018-09-20] MEDS: VANCOMYCIN 1 GRAM (PRE-DOCKED) 1,000 MG/250 ML BAG IVPB SCH (06:15)
[2018-09-20 06:54] VITALS: BP 124/84; PULSE 101; TEMP 98.5
[2018-09-20] MEDS ORDERED: PIPERACILLIN/TAZOBACTAM 4.5 GM VIAL IVPB ONE (10:37)
[2018-09-20] MEDS ORDERED: DEXTROSE 5%-WATER 100 ML IVPB ONE (10:37)
[2018-09-20] MEDS ORDERED: PT OWN MED DRAWER 7, Y5N ONE (10:37)
[2018-09-20] MEDS: ACETAMINOPHEN 325 MG TABLET (FP) PO PRN (10:39)
[2018-09-20] MEDS: ASPIRIN 81 MG CHEWABLE TABLETS PO SCH (10:45)
[2018-09-20] MEDS: CALCIUM 500MG/VIT-D 200 UNITS COMBO TABLET (FP) PO SCH (10:45)
[2018-09-20] MEDS: MULTIVITAMINS (DAILY MVI) TABLET (FP) PO SCH (10:45)
[2018-09-20] MEDS: amLODIPine BESYLATE 2.5 MG TABLET (FP) PO SCH (10:45)
[2018-09-20] MEDS: PIPERACILLIN/TAZOB 4.5 GM 4.5 GM in DEXTROSE 5%-WATER 100 ML IVPB SCH (10:45)
[2018-09-20] MEDS: ENOXAPARIN NA (PORCINE) 40 MG/0.4 ML DISP.SYRIN SQ SCH (10:46)
[2018-09-20] MEDS: TIOTROPIUM BROMIDE 2.5 MCG (SPIRIVA) RESPIMAT INHALER IH SCH (10:46)
--- NOTE | 2018-09-20 11:15 | DS ---
Physical Exam: SUBJECTIVE: Patient seen and examined at bedside. Offers no new complaints. No acute events overnight. Anxious to return home. OBJECTIVE: Vital Signs Period Temp Pulse Resp BP Sys/Lara Pulse Ox Last 24 Hr 98.5 F 90-101 18-20 124-139/58-84 95 PHYSICAL EXAM GENERAL: AAOx3 NAD HEAD: NC/AT LUNGS: CTA B/L HEART: RRR, No MRG S1S2 EXTREMITIES: Severe venous stasis B/L. PVD. PSYCH: Normal mood, normal affect. SKIN: Unwrapped dressing. LLE ulcers medial and lateral aspect of ankle. No discharge or odor. Wound clean and dry. LABS HOSPITAL COURSE: Date of Admission:09/18/18 Pt was referred to the emergency department by Dr. Storm for new onset of ulcers to the medial and lateral aspect of the ankle, increased drainage from the site and possible osteomyelitis. MRI of the left lower extremity on was performed. Imaging did not reveal any signs of osteomyelitis. ESR/CRP were 32/0.8 respectively. Pt was diagnosed with venous stasis/ulcers of her left foot. Pt was treated with Vancomycin and Zosyn. Patient informed to follow up at wound clinic weekly with Dr Cecile Dexter. Date of Discharge: 09/20/18 Minutes to complete discharge: 37 Discharge Summary Reason For Visit: ULER OF LEFT FOOT Current Active Problems Ulcer of left foot (Acute) Condition: Improved - Instructions Diet, Activity, Other Instructions: You were referred to the emergency department by Dr. Storm for new onset of ulcers to the medial and lateral aspect of the ankle, increased drainage from the site and possible osteomyelitis. In order to rule out osteomyelitis, an MRI of the left foot on 09/18/18 was performed. Imaging did not reveal any osteomyelitis. Additionally, you were found to have a skin infection of the left ankle and you were treated with antibiotics. You do not need antibiotics. -Continue to follow up with your vascular Surgeon, Dr Dexter, for routine wound care. - Follow up with your Primary Care Physician within 1 week. Please return to ED if you experience fever, chills, increased pain, or any new symptoms Referrals: Hemalatha Storm MD [Primary Care Provider] - Disposition: HOME - Home Medications Comprehensive Discharge Medication List: Ambulatory Orders Multivitamin [Multivitamins] 1 each PO DAILY 08/01/13 Calcium Carbonate/Vitamin D3 [Calcium 500 + Vit D 400 Tablet] 1 each PO DAILY Potassium Bicarbonate/Cit AC [Potassium 25 Meq Tablet Eff] 25 meq PO DAILY 04/17 Amlodipine Besylate [Norvasc -] 2.5 mg PO DAILY 10/13/14 Aspirin [ASA -] 81 mg PO DAILY 10/13/14 Aclidinium [place] [Tudorza -] 1 puff IH BID #10 inhaler 10/14/16 Albuterol 2.5/Ipratropium 0.5 [Duoneb -] 1 amp NEB Q4H PRN #10 amp 10/14/16 Albuterol Sulfate Inhaler - [Ventolin HFA Inhaler -] 2 puff IH Q4H PRN #10 inhaler 10/14/16 Oxycodone HCl 10 mg PO DAILY 09/19/18 Zinc Amino Acid Chelate [Zinc] 50 mg PO DAILY 09/19/18 This patient is new to me today: Yes Date on this admission: 09/20/18 Emergency Visit: Yes ED Registration Date: 09/18/18 Care time: The patient presented to the Emergency Department on the above date and was hospitalized for further evaluation of their emergent condition. Critical Care patient: No - Discharge Referral Referred to [facility] Med P.C.: No
--- NOTE | 2018-09-20 11:58 | PN ---
Progress Note, Physician History of Present Illness: stable doing well no issues - Current Medication List Current Medications: Active Medications Acetaminophen (Tylenol -) 325 mg PO Q4H PRN PRN Reason: PAIN LEVEL 6-10 Stop: 09/22/18 10:53 Last Admin: 09/20/18 10:39 Dose: 325 mg Albuterol Sulfate (Ventolin Hfa Inhaler -) 2 puff IH Q4H PRN PRN Reason: SHORT OF BREATH/WHEEZING Albuterol/Ipratropium (Duoneb -) 1 amp NEB Q4H PRN PRN Reason: SHORTNESS OF BREATH Amlodipine Besylate (Norvasc -) 2.5 mg PO DAILY [facility] Last Admin: 09/20/18 10:45 Dose: 2.5 mg Aspirin (Asa -) 81 mg PO DAILY [facility] Last Admin: 09/20/18 10:45 Dose: 81 mg Calcium Carbonate/Cholecalciferol (Os-Lauro 500+D -) 1 tab PO DAILY [facility] Last Admin: 09/20/18 10:45 Dose: 1 tab Enoxaparin Sodium (Lovenox -) 40 mg SQ DAILY [facility] Last Admin: 09/20/18 10:46 Dose: Not Given Piperacillin Sod/Tazobactam (Sod 4.5 gm/ Dextrose) 100 mls @ 200 mls/hr IVPB BID [facility]; Protocol Last Admin: 09/20/18 10:45 Dose: 200 mls/hr Vancomycin HCl (Vancomycin (Pre-Docked)) 1,000 mg in 250 mls @ 166.667 mls/hr IVPB BID@0700,1900 [facility]; Protocol Last Admin: 09/20/18 06:15 Dose: 166.667 mls/hr Multivitamins/Minerals/Vitamin C (Tab-A-Vit -) 1 tab PO DAILY [facility] Last Admin: 09/20/18 10:45 Dose: 1 tab Oxycodone HCl (Roxicodone -) 5 mg PO Q4H PRN PRN Reason: PAIN LEVEL 6-10 Last Admin: 09/20/18 10:39 Dose: 5 mg Tiotropium [place] (Spiriva Respimat) 2 puff IH DAILY [facility] Last Admin: 09/20/18 10:46 Dose: 2 puff - Objective Vital Signs: Vital Signs Temperature 98.5 F 09/20/18 06:53 Pulse Rate 101 H 09/20/18 06:53 Respiratory Rate 20 09/20/18 06:53 Blood Pressure 124/84 09/20/18 06:53 O2 Sat by Pulse Oximetry (%) 95 09/19/18 21:00 Constitutional: Yes: No Distress, Calm Cardiovascular: Yes: Regular Rate and Rhythm Respiratory: Yes: Regular, CTA Bilaterally Gastrointestinal: Yes: Normal Bowel Sounds, Soft Musculoskeletal: Yes: Other Extremities: Yes: Other Integumentary: Yes: Other Neurological: Yes: Alert, Oriented Labs: CBC, BMP 09/19/18 09:07 09/19/18 09:07 - ....Imaging MRI: Report Reviewed, Image Reviewed Assessment/Plan Problem List - Problems (1) Ulcer of left foot Code(s): L97.529 - NON-PRESSURE CHRONIC ULCER OTH PRT LEFT FOOT W UNSP SEVERITY (2) Cellulitis Code(s): L03.90 - CELLULITIS, UNSPECIFIED (3) Chronic ulcer of left foot Code(s): L97.529 - NON-PRESSURE CHRONIC ULCER OTH PRT LEFT FOOT W UNSP SEVERITY (4) Venous insufficiency (chronic) (peripheral) Code(s): I87.2 - VENOUS INSUFFICIENCY (CHRONIC) (PERIPHERAL) (5) Wound infection Code(s): T14.8 - OTHER INJURY OF UNSPECIFIED BODY REGION * DO NOT USE *; L08.9 - LOCAL INFECTION OF THE SKIN AND SUBCUTANEOUS TISSUE, UNSP Assessment/Plan 68 y.o. female with PMH of PVD, chronic LE ulcers, HTN presenting with new Lt medial ankle ulcer with drainage/pain/mild erythema mri normal continue current mgmt rest as per the team stable
--- NOTE | 2018-09-20 12:14 | PN ---
Teaching Attending Note Name of Resident: Jeb Nguyen ATTENDING PHYSICIAN STATEMENT I saw and evaluated the patient. I reviewed the resident's note and discussed the case with the resident. I agree with the resident's findings and plan as documented. SUBJECTIVE:states she feels fine and wants to go home now OBJECTIVE: Last Vital Signs Temp Pulse Resp BP Pulse Ox 98.5 F 101 H 20 124/84 95 09/20/18 06:53 09/20/18 06:53 09/20/18 06:53 09/20/18 06:53 09/19/18 21:00 General NAD refused physical exam ASSESSMENT AND PLAN: 68yo F with PMH PVD, HTN was sent to the ER from the clinic on thursday for non- healing ulcer on LLE 1. Non-healing LLE ulcer-refused exam. MRI negative for OM. as per ID does not require further abx. can f/u in wound care clinic for further management.=. daily wound care 2. HTN-controlled. cont home regimen 3. DVT ppx- lovenox 4. d/c home
== END 2018-09-20 12:25 | disposition home or self-care (01) ==
LOC: JER 11:18 → JERBED 16:47 → J8W 23:48
PROVIDERS: ADMIT Internal Medicine; ATTEND Internal Medicine
PROC: 3E03329 Introduction of Other Anti-infective into Peripheral Vein, Percutaneous Approach (ICD-10-PCS; principal; 2018-09-18)
PROC: 3E0337Z Introduction of Electrolytic and Water Balance Substance into Peripheral Vein, Percutaneous Approach (ICD-10-PCS; 2018-09-18)
PROC: 3E0F7GC Introduction of Other Therapeutic Substance into Respiratory Tract, Via Natural or Artificial Opening (ICD-10-PCS; 2018-09-18)
DX: L97.529 Non-pressure chronic ulcer of other part of left foot with unspecified severity (principal); L03.90 Cellulitis, unspecified; I87.2 Venous insufficiency (chronic) (peripheral); L08.9 Local infection of the skin and subcutaneous tissue, unspecified; I10 Essential (primary) hypertension; F17.210 Nicotine dependence, cigarettes, uncomplicated
CPT/HCPCS: 36415; 73610-TC-LT-FY; 73630-TC-LT; 73718-LT; 80048; 80053; 83735; 84100; 85025; 85027; 85651; 86140; 87081; 99283-25; G0378; J7030

== ENCOUNTER 2020-11-02 12:14 | Inpatient (IN) | payer OTHER ==
[2020-11-02] MEDS ORDERED: HALOPERIDOL LACTATE 5 MG/ML ONE (12:20)
[2020-11-02] MEDS ORDERED: HALOPERIDOL LACTATE 5 MG/ML IM ONE (12:23)
[2020-11-02 13:36] LABS: BASO % 0.4 % (0-2.0); EOS % 2.3 % (0-4.5); HEMATOCRIT 40.5 % (32.4-45.2); HEMOGLOBIN 13.2 GM/dL (10.7-15.3); LYMPH % 44.7 % (8-40); MCH 28.8 pg (25.7-33.7); MCHC 32.5 g/dl (32.0-36.0); MEAN CELL VOLUME 88.7 fl (80-96); MEAN PLT VOLUME 8.2 fl (7.5-11.1); MONO % 8.3 % (3.8-10.2); NEUT % 44.3 % (42.8-82.8); PLATELET COUNT 175 K/MM3 (134-434); RBC 4.57 M/mm3 (3.60-5.2); RDW 14.4 % (11.6-15.6); WHITE BLOOD COUNT 7.1 K/mm3 (4.0-10.0)
[2020-11-02 13:38] LABS: VENOUS BASE EXCESS -2.2 mmol/L (-2-2); VENOUS O2 SATURATION 92.5 % (70-80); VENOUS PH 7.216 (7.310-7.410)
[2020-11-02 13:44] LABS: INR 0.99 (0.83-1.09); PROTHROMBIN TIME (PATIENT) 12.2 SEC (9.7-13.0)
[2020-11-02 13:52] LABS: CALCIUM 8.5 mg/dL (8.5-10.1); CHLORIDE 105 mmol/L (98-107); POTASSIUM 3.7 mmol/L (3.5-5.1); SODIUM 141 mmol/L (136-145)
[2020-11-02 13:53] LABS: VENOUS PCO2 71.8 mmHg (38-52)
[2020-11-02 13:54] LABS: ALBUMIN 3.5 g/dl (3.4-5.0); ANION GAP 5 MMOL/L (8-16); BLOOD UREA NITROGEN 21.8 mg/dL (7-18); CO2 30 mmol/L (21-32); GLUCOSE,RANDOM 105 mg/dL (74-106)
[2020-11-02 13:57] LABS: CREATININE 0.8 mg/dL (0.55-1.3); SGOT/AST 32 U/L (15-37); SGPT/ALT 23 U/L (13-61)
[2020-11-02 13:58] LABS: BILIRUBIN,TOTAL 0.6 mg/dL (0.2-1)
[2020-11-02 13:59] LABS: TOT PROT 8.8 g/dl (6.4-8.2)
[2020-11-02 14:00] LABS: ALK PHOS 114 U/L (45-117)
[2020-11-02] MEDS ORDERED: AZITHROMYCIN IVPB 500 MG in DEXTROSE 5%-WATER - 250 ML IVPB ONE (14:23)
[2020-11-02] MEDS ORDERED: CEFTRIAXONE 1 GM in DEXTROSE 5%-WATER - 100 ML IVPB ONE (14:23)
[2020-11-02] MEDS ORDERED: CEFTRIAXONE 1 GM/50 ML BAG ONE (14:29)
[2020-11-02] MEDS ORDERED: AZITHROMYCIN IVPB 500 MG/250 ML BAG IVPB ONE (14:30)
[2020-11-02 15:06] LABS: ERYTHROCYTE SEDIMENTATION RATE 35 mm/hr (0-30)
[2020-11-02] MEDS ORDERED: HEPARIN NA (PORCINE) 5,000 UNITS/ML 1ML VIAL ONE (18:19)
[2020-11-02] MEDS: HEPARIN NA (PORCINE) 5,000 UNITS/ML 1ML VIAL SQ SCH (18:23)
[2020-11-02] MEDS ORDERED: ALBUTEROL SO4 2.5/IPRATROPIUM 0.5 INH SOL 3 ML VIAL.NEB. NEB PRN (20:34)
[2020-11-02] MEDS ORDERED: PATIENT'S OWN MEDICATION (NON-FORMULARY) (Oxycodone Hcl [Oxycodone Hcl] 10 MG Tablet) PO PRN (20:45)
[2020-11-02] MEDS ORDERED: ALBUTEROL SO4 2.5/IPRATROPIUM 0.5 INH SOL 3 ML VIAL.NEB. NEB SCH (20:45)
[2020-11-02] MEDS ORDERED: ALBUTEROL SO4 0.083% IH SOL 2.5 MG/3 ML VIAL.NEB. NEB PRN (20:47)
[2020-11-02 22:29] LABS: EPI CELLS 31 /uL (0-25.1); HYALINE CASTS 1 /uL (0-3.1); PH,URINE 5.5 (5.0-8.0); URINE APPEARANCE CLEAR; URINE BACTERIA 83 /uL (0-1359); URINE BILIRUBIN NEGATIVE (NEGATIVE); URINE COLOR YELLOW; URINE GLUCOSE (UA) NEGATIVE (NEGATIVE); URINE KETONE NEGATIVE (NEGATIVE); URINE LEUK ESTERASE TRACE (NEGATIVE); URINE NITRITE NEGATIVE (NEGATIVE); URINE PROTEIN NEGATIVE (NEGATIVE); URINE RBC 17 /uL (0-23.9); URINE UROBILINOGEN 0.2 mg/dL (0.2-1.0); URINE WBC 17 /uL (0-25.8)
[2020-11-02] MEDS ORDERED: ACETAMINOPHEN 1000 MG/100 ML VIAL (NON FORMULARY) IVPB ONE (23:41)
[2020-11-02] MEDS ORDERED: MELATONIN 5 MG TABLETS PO ONE (23:42)
[2020-11-02 23:46] LABS: COCAINE, UR NEGATIVE ng/ml (CUTOFF=300); URINE AMPHETAMINES NEGATIVE ng/ml (CUTOFF=500); URINE BARBITURATES NEGATIVE ng/ml (CUTOFF=200); URINE BENZODIAZEPINES NEGATIVE ng/ml (CUTOFF=200)
[2020-11-02 23:50] LABS: PHENCYCLIDINE,URINE NEGATIVE ng/ml (CUTOFF=25)
[2020-11-02 23:54] LABS: METHADONE, UR POSITIVE ng/ml (CUTOFF=300); OPIATES, URI POSITIVE ng/ml (CUTOFF=300)
[2020-11-03] MEDS: HEPARIN NA (PORCINE) 5,000 UNITS/ML 1ML VIAL SQ SCH ×3 (00:20→17:53)
[2020-11-03 04:06] VITALS: BMI 26.4
[2020-11-03] MEDS ORDERED: ACETAMINOPHEN INJECTION 100 ML IVPB ONE (05:11)
[2020-11-03] MEDS: ALBUTEROL SO4 2.5/IPRATROPIUM 0.5 INH SOL 3 ML VIAL.NEB. NEB SCH ×4 (07:35→19:53)
[2020-11-03 08:53] LABS: BASO % 0.6 % (0-2.0); EOS % 3.1 % (0-4.5); HEMATOCRIT 37.9 % (32.4-45.2); HEMOGLOBIN 12.1 GM/dL (10.7-15.3); INR 1.06 (0.83-1.09); MEAN CELL VOLUME 87.7 fl (80-96); MEAN PLT VOLUME 8.4 fl (7.5-11.1); MONO % 9.2 % (3.8-10.2); NEUT % 53.1 % (42.8-82.8); PLATELET COUNT 156 K/MM3 (134-434); PROTHROMBIN TIME (PATIENT) 12.8 SEC (9.7-13.0); RBC 4.32 M/mm3 (3.60-5.2); RDW 14.3 % (11.6-15.6); WHITE BLOOD COUNT 6.4 K/mm3 (4.0-10.0)
[2020-11-03 08:59] LABS: POTASSIUM 3.9 mmol/L (3.5-5.1)
[2020-11-03 09:01] LABS: CALCIUM 8.5 mg/dL (8.5-10.1)
[2020-11-03 09:02] LABS: ALBUMIN 3.1 g/dl (3.4-5.0); BLOOD UREA NITROGEN 16.7 mg/dL (7-18)
[2020-11-03 09:05] LABS: CREATININE 0.6 mg/dL (0.55-1.3)
[2020-11-03 09:06] LABS: BILIRUBIN,TOTAL 0.3 mg/dL (0.2-1)
[2020-11-03 09:07] LABS: TOT PROT 7.9 g/dl (6.4-8.2)
[2020-11-03] MEDS ORDERED: cefTRIAXone SODIUM 1 GM VIAL ONE (09:07)
[2020-11-03] MEDS ORDERED: DEXTROSE 5%-WATER - 50 ML IVPB ONE (09:07)
[2020-11-03] MEDS: CEFTRIAXONE 1 GM in DEXTROSE 5%-WATER - 50 ML IVPB SCH (10:05)
[2020-11-03] MEDS: MULTIVITAMINS (DAILY MVI) TABLET (FP) PO SCH (10:05)
[2020-11-03] MEDS: CALCIUM 500MG/VIT-D 200 UNITS COMBO TABLET (FP) PO SCH (10:05)
[2020-11-03] MEDS: ASPIRIN 81 MG CHEWABLE TABLETS PO SCH (10:05)
[2020-11-03] MEDS: amLODIPine BESYLATE 2.5 MG TABLET (FP) PO SCH (10:05)
[2020-11-03] MEDS: ZINC SULFATE 220 MG CAPSULE (FP) PO SCH (10:05)
[2020-11-03 10:17] LABS: PLATELET ESTIMATE NORMAL
[2020-11-03] MEDS: AZITHROMYCIN IVPB 500 MG/250 ML BAG IVPB SCH (10:45)
[2020-11-03] MEDS: TIOTROPIUM BROMIDE 2.5 MCG (SPIRIVA) RESPIMAT INHALER IH SCH (11:56)
[2020-11-03] MEDS ORDERED: oxyCODONE HCL 5 MG TABLET ONE (19:40)
[2020-11-03] MEDS: oxyCODONE HCL 5 MG TABLET PO PRN (19:46)
[2020-11-03] MEDS ORDERED: MELATONIN 5 MG TABLETS PO ONE (23:38)
[2020-11-04] MEDS: HEPARIN NA (PORCINE) 5,000 UNITS/ML 1ML VIAL SQ SCH ×2 (01:19→10:24)
[2020-11-04] MEDS: oxyCODONE HCL 5 MG TABLET PO PRN (05:34)
[2020-11-04 05:59] VITALS: BP 143/76; TEMP 98.7
[2020-11-04 06:51] LABS: BASO % 0.6 % (0-2.0); EOS % 1.8 % (0-4.5); HEMATOCRIT 40.5 % (32.4-45.2); HEMOGLOBIN 13.6 GM/dL (10.7-15.3); LYMPH % 40.4 % (8-40); MCH 29.1 pg (25.7-33.7); MCHC 33.5 g/dl (32.0-36.0); MEAN CELL VOLUME 86.9 fl (80-96); MEAN PLT VOLUME 8.2 fl (7.5-11.1); MONO % 8.6 % (3.8-10.2); NEUT % 48.6 % (42.8-82.8); PLATELET COUNT 140 K/MM3 (134-434); RBC 4.66 M/mm3 (3.60-5.2); WHITE BLOOD COUNT 5.2 K/mm3 (4.0-10.0)
[2020-11-04 07:08] LABS: POTASSIUM 3.5 mmol/L (3.5-5.1)
[2020-11-04 07:13] LABS: ALBUMIN 3.3 g/dl (3.4-5.0); BLOOD UREA NITROGEN 10.6 mg/dL (7-18); CALCIUM 9.1 mg/dL (8.5-10.1)
[2020-11-04 07:16] LABS: CREATININE 0.6 mg/dL (0.55-1.3)
[2020-11-04 07:17] LABS: BILIRUBIN,TOTAL 1.2 mg/dL (0.2-1); TOT PROT 8.4 g/dl (6.4-8.2)
[2020-11-04] MEDS: ALBUTEROL SO4 2.5/IPRATROPIUM 0.5 INH SOL 3 ML VIAL.NEB. NEB SCH ×2 (07:30→11:42)
[2020-11-04 08:44] VITALS: PULSE 87
[2020-11-04 09:52] LABS: ARTERIAL BLD GAS O2 SATURATION 89.6 mmHg (95-98); ARTERIAL BLOOD GAS BASE EXCESS 7.4 mmol/L (-2-2); ARTERIAL BLOOD GAS PO2 53.8 mmHg (80-100); ARTERIAL BLOOD GAS pH 7.467 (7.350-7.450)
[2020-11-04 09:54] LABS: ALLENS TEST POSITIVE
[2020-11-04] MEDS ORDERED: DEXTROSE 5%-WATER - 50 ML IVPB ONE (10:17)
[2020-11-04] MEDS ORDERED: cefTRIAXone SODIUM 1 GM VIAL ONE (10:17)
[2020-11-04] MEDS: CEFTRIAXONE 1 GM in DEXTROSE 5%-WATER - 50 ML IVPB SCH (10:23)
[2020-11-04] MEDS: amLODIPine BESYLATE 2.5 MG TABLET (FP) PO SCH (10:24)
[2020-11-04] MEDS: TIOTROPIUM BROMIDE 2.5 MCG (SPIRIVA) RESPIMAT INHALER IH SCH (10:24)
[2020-11-04] MEDS: ZINC SULFATE 220 MG CAPSULE (FP) PO SCH (10:24)
[2020-11-04] MEDS: CALCIUM 500MG/VIT-D 200 UNITS COMBO TABLET (FP) PO SCH (10:24)
[2020-11-04] MEDS: MULTIVITAMINS (DAILY MVI) TABLET (FP) PO SCH (10:24)
[2020-11-04] MEDS: ASPIRIN 81 MG CHEWABLE TABLETS PO SCH (10:24)
[2020-11-04] MEDS: AZITHROMYCIN IVPB 500 MG/250 ML BAG IVPB SCH (10:56)
== END 2020-11-04 13:13 | disposition home or self-care (01) | DRG 917 ==
LOC: JER 12:14 → JERBED 13:10 → J8W 23:12
PROVIDERS: ADMIT Internal Medicine; ATTEND Internal Medicine
DX: T40.601A Poisoning by unspecified narcotics, accidental (unintentional), initial encounter (principal); J96.02 Acute respiratory failure with hypercapnia; L03.116 Cellulitis of left lower limb; L03.115 Cellulitis of right lower limb; L97.918 Non-pressure chronic ulcer of unspecified part of right lower leg with other specified severity; L97.928 Non-pressure chronic ulcer of unspecified part of left lower leg with other specified severity; E87.2 Acidosis; R41.82 Altered mental status, unspecified; I10 Essential (primary) hypertension; I73.9 Peripheral vascular disease, unspecified; J44.9 Chronic obstructive pulmonary disease, unspecified; E01.0 Iodine-deficiency related diffuse (endemic) goiter; T40.2X5A Adverse effect of other opioids, initial encounter; I83.009 Varicose veins of unspecified lower extremity with ulcer of unspecified site; R44.1 Visual hallucinations
CPT/HCPCS: 36415; 36600; 70450-TC; 71045-TC-FY; 71046-TC-FY; 80053; 80307; 81003; 82728; 82803; 83605; 83735; 84100; 84484; 85025; 85610; 85651; 86140; 87040; 87086; 87899; 93005; 93010; 94640; 94660; 97116-GP; 97162-GP; 99291; C9803; J0131; J1644; U0003